=== PATIENT | female | born 1950 | race Caucasian/White ===

== ENCOUNTER → 2024-08-30 10:25 | Outpatient (REF) | payer MEDICARE, OTHER, SELFPAY | LOC: HWRAD 10:25 | PROVIDERS: ATTENDING PHYSICIAN Nurse Practitioner; FAMILY PHYSICIAN Internal Medicine | DX: R35.1 Nocturia (principal); N32.81 Overactive bladder | CPT/HCPCS: 76770; 76856 ==

== ENCOUNTER → 2024-09-05 14:51 | Outpatient (REF) | payer MEDICARE, OTHER, SELFPAY | LOC: HWWDC 14:51 | PROVIDERS: ATTENDING PHYSICIAN Internal Medicine | DX: Z12.31 Encounter for screening mammogram for malignant neoplasm of breast (principal) | CPT/HCPCS: 77063; 77067 ==